=== PATIENT | male | born 1940 | race Caucasian/White ===

== ENCOUNTER 2019-01-21 16:12 | Inpatient (IN) | payer MEDICARE, BC ==
[~2019-01-21] VITALS: Ht 165.1 cm; Wt 73.5 kg
[2019-01-21 18:03] LABS: BASOPHILS 0.3 % (0-2); EOSINOPHILS 0.1 % (0-7); HEMATOCRIT 24.6 % (42.0-54.0); IMMATURE GRANULOCYTES 0.5 % (0-5); MCHC 28.5 g/dL (31.0-37.0); MCV 68.3 fL (80.0-100.0); MEAN PLATELET VOLUME 9.8 fL (7.4-10.4); MONOCYTES 8.8 % (2-11); NEUTROPHILS 80.3 % (40-80); PLATELET COUNT 434 10x3/uL (130-400); RDW 23.1 % (11.5-14.5); WBC 11.9 10x3/uL (4.8-10.8)
[2019-01-21 18:16] LABS: ALBUMIN 3.8 g/dL (3.4-5.0); ALKALINE PHOSPHATASE 57 U/L (46-116); ALT (SGPT) 26 U/L (10-68); BILIRUBIN - TOTAL 0.76 mg/dL (0.2-1.3); CALC OSMOLALITY 284 mosm/kg (275-300); CALCIUM 8.6 mg/dL (8.5-10.1); CARBON DIOXIDE 19.2 mmol/L (21.0-32.0); CHLORIDE - SERUM 104 mmol/L (98-107); CREATININE - SERUM 1.2 mg/dL (0.6-1.3); GLUCOSE 155 mg/dL (74-106); POTASSIUM - SERUM 3.2 mmol/L (3.5-5.1); PROTEIN - SERUM 7.7 g/dL (6.4-8.2); SODIUM 141 mmol/L (136-145); UREA NITROGEN 15 mg/dL (7-18); eGFR NON AFRICAN AMERICAN 62 mL/min (90-120)
[2019-01-21 18:18] LABS: MCH 19.4 pg (26.0-34.0)
[2019-01-21 18:26] LABS: CKMB 3.3 U/L (0.0-3.6); CREATINE KINASE 276 UL (21-232)
--- NOTE | 2019-01-21 18:40 | NUR ---
REPORT CALLED TO ERICKA DAVID AT [facility] ER, EMS ALS O NOTIFED.
--- NOTE | 2019-01-21 19:26 | NUR ---
LACTIC ACID ELEVATED 3.4 KUNAL COELLO.
[2019-01-21 19:37] VITALS: BP 134/54
--- NOTE | 2019-01-21 19:37 | NUR ---
EMS HERE TO TAKE PT TO [facility] FOR SOLIMAN PLACEMENT PER UROLOGY.
--- NOTE | 2019-01-21 19:49 | NUR ---
PT'S IV ROCEPHIN INFUSING ON TRANSPORT WITH EMS.
--- NOTE | 2019-01-21 22:19 | NUR ---
DYLLAN CAMPBELL RN CALLED REPORT AT THIS TIME. PT HAD 16 FR COUDE PLACED WAS GIVEN 4 MG MORPHINE AND 4MG ZOFRAN IV. THEY ARE AWAITING EMS TRANSPORT.
[2019-01-22] VITALS (12 sets, daily range): BP systolic 97–121; BP diastolic 49–60; Ht 165.1 cm; Wt 73.5 kg
--- NOTE | 2019-01-22 00:37 | NUR ---
RENUKA AT BEDSIDE WITH PT. PT ALERT ORIENTED AND STATES THAT HE FEELS MORE RELIEF AFTER GETTING SOLIMAN PLACED. PT HAS 16FR COUDE SOLIMAN PLACED 1500ML NOTED IN BAG OF BRIGHT RED BLOODY URINE . MD SYED AT BEDSIDE. PT OK TO GO TO FLOOR MED 3 CALLED AND INFORMED.
[2019-01-22] MEDS ORDERED: FLOMAX0.4 MG PO (01:44)
[2019-01-22] MEDS ORDERED: PROSCAR5 MG PO (01:45)
[2019-01-22] MEDS ORDERED: VITAMIN B-12250 MC3 PO (01:46)
[2019-01-22] MEDS ORDERED: NEXIUM20 MG PO (01:46)
[2019-01-22] MEDS ORDERED: BAYER CHEWABLE81 MG PO (01:47)
--- NOTE | 2019-01-22 03:36 | NUR ---
RECEIVED PT FROM [facility] VIA AMBULANCE JUST AFTER MIDNIGHT. HE IS ALERT AND ORIENTED, ABLE TO VERBALIZE NEEDS. FAMILY MEMBERS WERE AT THE HOSPITAL TO SETTLE HIM IN. HE CAME WITH A SOLIMAN CATH WHICH WAS PLACED AT [facility]. IT HAS BLOODY URINE BUT IS DRAINING WELL AND PT STATES HE IS NOT HAVING ANY PAIN. LABS WERE DRAWN AFTER HIS ARRIVAL AND HIS LACTIC ACIC WAS ELEVATED BUT HAS GONE DOWN SINCE THE PRIOR DRAW. ORDERS FROM THE ER AT [facility] BEFORE HE WAS SENT TO [facility] FOR A SOLIMAN ARE NOW BEING CARRIED OUT TO GIVE HIM A UNIT OF PRBC.S. THIS UNIT IS INFUSING AT THIS TIME AND HE IS ASLEEP WITH NO PROBLEMS NOTED. FAMILY LEFT AND WILL RETURN IN THE AM.
[2019-01-22 06:55] LABS: BASOPHILS 0.1 % (0-2); EOSINOPHILS 0.1 % (0-7); HEMATOCRIT 23.4 % (42.0-54.0); IMMATURE GRANULOCYTES 0.2 % (0-5); LYMPHOCYTES 8.6 % (15-50); MCH 21.3 pg (26.0-34.0); MCHC 29.9 g/dL (31.0-37.0); MONOCYTES 10.2 % (2-11); NEUTROPHILS 80.8 % (40-80); RBC 3.28 10x6/uL (4.20-6.10); WBC 11.1 10x3/uL (4.8-10.8)
[2019-01-22 06:58] LABS: MCV 71.3 fL (80.0-100.0); PLATELET COUNT 292 10x3/uL (130-400)
[2019-01-22 07:09] LABS: ANION GAP 13.3 mmol/L (8-16); BILIRUBIN - TOTAL 0.29 mg/dL (0.2-1.3); CALCIUM 8.1 mg/dL (8.5-10.1); CARBON DIOXIDE 23.6 mmol/L (21.0-32.0); CREATININE - SERUM 1.1 mg/dL (0.6-1.3); PROTEIN - SERUM 6.3 g/dL (6.4-8.2)
[2019-01-22 07:11] LABS: POTASSIUM - SERUM 3.9 mmol/L (3.5-5.1)
--- NOTE | 2019-01-22 07:45 | NUR ---
ASSESSMENT COMPLETE. IV TO R WRIST PATENT. ELECTRIC DISTRIBUTION ENGINEER SHOWING SR WITH ELEVATED T WAVE 73 PER TECH. QUISPE. JOURDAN PATENT DRAINING BLOODY URINE. DENIES ANY NEEDS AT THIS TIME.
--- NOTE | 2019-01-22 08:00 | NUR ---
AAOX4 READING NEWSPAPER NO SIGNS OF DISTRESS NOTED WILL CONTINUE TO MONITOR, CL IN REACH
--- NOTE | 2019-01-22 08:30 | NUR ---
C/O URINARY BURNING. URINE LEAKING AROUND CATHETER. CATHETER IRRIGATED. IMMEDIATE RETURN OF BLOOD TINGED URINE. STATES THAT THE BURNING STOPPED. STATLOCK IN USE TO CATHETER.
[2019-01-22 09:38] LABS: % SATURATION 3 % (15-55); IRON 13 ug/dl (35-150); TOTAL IRON BIND CAPACITY 372 ug/dl (260-445); UNSAT IRON BIND CAPACITY 359 ug/dl (150-375)
--- NOTE | 2019-01-22 10:30 | NUR ---
PRBC INFUSION STARTED. VSS. FAMILY AT BEDSIDE. DENIES ANY NEEDS AT THIS TIME.
--- NOTE | 2019-01-22 10:50 | NUR ---
BLOOD INFUSING AT THIS TIME
--- NOTE | 2019-01-22 16:25 | MORECARE ---
CASE MANAGEMENT DISCHARGE SUMMARY PATIENT: MARILYN LAWRENCE UNIT: [id number] ADM DATE: 01/21/19 AGE: 78 : 40 SEX: M ROOM/BED: D.1207 AUTHOR: JOSAFAT,DOC PHYSICIAN: REFERRING PHYSICIAN: LEVI OCAMPO MD DATE OF SERVICE: 01/22/19 Discharge Plan Patient Name: MARILYN LAWRENCE Facility: [facility]:[place] : 1940 Planned Disposition: Home Anticipated Discharge Date: Discharge Date: Expected LOS: Initial Reviewer: [id number] Initial Review Date: 01/22/2019 Generated: 01/22/19 5:24 pm Comments DCP- Discharge Planning Updated by [email or web address]: Natividad Chambers on 01/22/19 3:[address] Patient Name: MARILYN LAWRENCE Admission Status: ER Accout number: [id number] Admission Date: 01-21-2019 : 1940 Admission Diagnosis: Attending: ELVI GALLO Current LOS: 1 Anticipated DC Date: Planned Disposition: Home Primary Insurance: MEDICARE A & B Discharge Planning Comments: CM met with patient about discharge planning. CM explained CM role and verbal consent was given to do dc assessment. CM educated on Home Health, DME and rehab services that are available. Patient states his discharge plan is to return to home with Sign Other at [facility] . States home environment is safe for dc. Denies any discharge planning needs at this time. [facility] alexandro Bagley [phone] will drive home upon discharge. CM will continue to follow and assist as needed with discharge planning needs. Information Management Manager: Natividad Chambers DCPIA - Discharge Planning Initial Assessment Updated by [email or web address]: Natividad Chambers on 01/22/19 4:21 pm * Is the patient Alert and Oriented? Yes * How many steps to enter\exit or inside your home? na * PCP was suraj Rubin * Pharmacy [facility] [address] * Preadmission Environment Home with Family * ADLs Independent * Equipment Walker Wheelchair * Verbal permission to speak to the caregivers and representatives has been obtained from the patient. Yes * Community resources currently utilized None * Additional services required to return to the preadmission environment? No * Can the patient safely return to the preadmission environment? Yes * Has this patient been hospitalized within the prior 30 days at any hospital? Yes Patient Name: MARILYN LAWRENCE Page 12196 at 1625 All edits/amendments must be made on the electronic document DICTATION DATE: 01/22/191623 VASCULAR PHYSICIAN: JEWEL 01/22/191623 RPT#: [id number] DC DATE: STATUS: ADM IN [facility] [address] [place] [address] END OF REPORT
--- NOTE | 2019-01-22 18:55 | NUR ---
SCD'S APPLIED TO BILAT LEGS. DENIES ANY NEEDS AT THIS TIME.
--- NOTE | 2019-01-22 19:40 | NUR ---
PATIENT RESTING IN BED WITH NO S/S OF DISTRESS. BROUGHT PATIENT A DRINK PER HIS REQUEST AND REMOVED DINNER TRAY. PATIENT DENIES OTHER NEEDS AT THIS TIME. BED IN LOWEST POSITION AND CALL LIGHT WITHIN REACH. ENCOURAGED THE PATIENT TO CALL IF HE HAS NEEDS. WILL CONTINUE TO MONITOR.
[2019-01-22 20:01] LABS: HEMATOCRIT 29.7 % (42.0-54.0); HEMOGLOBIN 9.2 g/dL (13.5-17.5)
--- NOTE | 2019-01-22 20:24 | NUR ---
HCT 29.7, NO TRANSFUSION AT THIS TIME PER NURSING MESSAGE PARAMETERS.
[2019-01-23 00:22] VITALS: BP 107/58
[2019-01-23 04:00] VITALS: BP 120/61
[2019-01-23 05:14] LABS: BASOPHILS 0.3 % (0-2); HEMATOCRIT 27.7 % (42.0-54.0); HEMOGLOBIN 8.6 g/dL (13.5-17.5); IMMATURE GRANULOCYTES 0.3 % (0-5); LYMPHOCYTES 15.6 % (15-50); MCH 23.2 pg (26.0-34.0); MEAN PLATELET VOLUME 10.3 fL (7.4-10.4); MONOCYTES 10.8 % (2-11); RBC 3.71 10x6/uL (4.20-6.10); RDW 24.4 % (11.5-14.5); WBC 9.9 10x3/uL (4.8-10.8)
[2019-01-23 05:15] LABS: INR 1.31 (0.85-1.17); MCV 74.7 fL (80.0-100.0); PLATELET COUNT 217 10x3/uL (130-400); PROTIME 15.8 SECONDS (11.6-15.0)
[2019-01-23 05:28] LABS: ALBUMIN 2.6 g/dL (3.4-5.0); ALKALINE PHOSPHATASE 41 U/L (46-116); ALT (SGPT) 17 U/L (10-68); BILIRUBIN - TOTAL 0.37 mg/dL (0.2-1.3); CALC OSMOLALITY 281 mosm/kg (275-300); CALCIUM 7.6 mg/dL (8.5-10.1); CARBON DIOXIDE 23.5 mmol/L (21.0-32.0); CHLORIDE - SERUM 109 mmol/L (98-107); CREATININE - SERUM 0.9 mg/dL (0.6-1.3); GLUCOSE 97 mg/dL (74-106); MAGNESIUM - SERUM 2.2 mg/dL (1.8-2.4); POTASSIUM - SERUM 3.7 mmol/L (3.5-5.1); PROTEIN - SERUM 5.6 g/dL (6.4-8.2); SODIUM 141 mmol/L (136-145); UREA NITROGEN 15 mg/dL (7-18); eGFR NON AFRICAN AMERICAN 87 mL/min (90-120)
--- NOTE | 2019-01-23 07:10 | NUR ---
PT AAOX4 RESP EVEN AND NONLABORED, NO SIGNS OF DISTRESS NOTED, NO NEEDS EXPRESSED AT THIS TIME, WILL CONTINUE TO MONITOR CL IN REACH
[2019-01-23 08:30] VITALS: BP 129/60
--- NOTE | 2019-01-23 10:11 | NUR ---
PATIENT RESTING QUIETLY IN HIS ROOM. NO COMPLAINTS AT THIS TIME. WILL CONTINUE TO MONITOR. CALL LIGHT WITHIN REACH.
--- NOTE | 2019-01-23 11:19 | NUR ---
PT OUT OF ROOM FOR PROCEDURE
[2019-01-23 11:30] VITALS: BP 110/53
[2019-01-23 12:57] LABS: HEMATOCRIT 30.1 % (42.0-54.0); HEMOGLOBIN 9.2 g/dL (13.5-17.5)
[2019-01-23 16:26] VITALS: BP 121/61
--- NOTE | 2019-01-23 17:19 | NUR ---
1 UNIT OF BLOOD ORDERED AND COMPLETE AT THIS TIME, PT TOLRATED W/O COMPLAINT
[2019-01-23 19:58] LABS: HEMOGLOBIN 9.7 g/dL (13.5-17.5)
--- NOTE | 2019-01-23 20:57 | NUR ---
NIGHT TIME MEDICATIONS GIVEN, PT UP TO SIDE OF BED, A/O X4, RESP EVEN AND NONLABORED ON RA. RT FA IV SL. SOLIMAN CATHETER DRAINING YONATAN COLOR URINE WITH A TINGE OF RED. PT DENIES ANY NEEDS AT THIS TIME. CALL LIGHT IN REACH, NAD NOTED, WILL CONTINUE PLAN OF CARE.
[2019-01-23 21:31] VITALS: BP 139/73
--- NOTE | 2019-01-23 23:46 | NUR ---
RT FA IV SL AT THIS TIME. PT DENIES ANY NEEDS AT THIS TIME. CALL LIGHT IN REACH, NAD NOTED, WILL CONTINUE TO MONITOR.
[2019-01-24 00:19] VITALS: BP 132/54
[2019-01-24 04:30] VITALS: BP 117/72
[2019-01-24 06:51] LABS: BASOPHILS 0.2 % (0-2); EOSINOPHILS 2.7 % (0-7); HEMATOCRIT 30.7 % (42.0-54.0); HEMOGLOBIN 9.6 g/dL (13.5-17.5); IMMATURE GRANULOCYTES 0.2 % (0-5); LYMPHOCYTES 13.7 % (15-50); MCH 23.6 pg (26.0-34.0); MCHC 31.3 g/dL (31.0-37.0); MCV 75.6 fL (80.0-100.0); MEAN PLATELET VOLUME 9.7 fL (7.4-10.4); MONOCYTES 11.5 % (2-11); NEUTROPHILS 71.7 % (40-80); PLATELET COUNT 242 10x3/uL (130-400); RBC 4.06 10x6/uL (4.20-6.10); RDW 24.3 % (11.5-14.5); WBC 8.8 10x3/uL (4.8-10.8)
[2019-01-24 07:06] LABS: ALBUMIN 2.5 g/dL (3.4-5.0); ALKALINE PHOSPHATASE 44 U/L (46-116); ALT (SGPT) 22 U/L (10-68); BILIRUBIN - TOTAL 0.46 mg/dL (0.2-1.3); CALC OSMOLALITY 280 mosm/kg (275-300); CALCIUM 7.6 mg/dL (8.5-10.1); CARBON DIOXIDE 24.2 mmol/L (21.0-32.0); CHLORIDE - SERUM 108 mmol/L (98-107); CREATININE - SERUM 0.8 mg/dL (0.6-1.3); GLUCOSE 95 mg/dL (74-106); MAGNESIUM - SERUM 2.2 mg/dL (1.8-2.4); POTASSIUM - SERUM 3.7 mmol/L (3.5-5.1); PROTEIN - SERUM 5.5 g/dL (6.4-8.2); SODIUM 141 mmol/L (136-145); UREA NITROGEN 12 mg/dL (7-18); eGFR NON AFRICAN AMERICAN > 90 mL/min (90-120)
[2019-01-24 07:30] VITALS: BP 150/74
[2019-01-24 12:19] LABS: APPEARANCE CLEAR (CLEAR); BACTERIA FEW /hpf (NONE SEEN); BILIRUBIN NEGATIVE (NEGATIVE); COLOR Y] (YELLOW); EPITHELIAL CELLS OCC /hpf (0-5); GLUCOSE NEGATIVE (NEGATIVE); KETONE NEGATIVE (NEGATIVE); NITRITE NEGATIVE (NEGATIVE); PROTEIN NEGATIVE (NEGATIVE); SPECIFIC GRAVITY 1.005 (1.005-1.020); UROBILINOGEN NORMAL (NORMAL); WHITE CELLS - URINE OCC /hpf (0-5)
[2019-01-24 12:56] LABS: HEMATOCRIT 35.5 % (42.0-54.0)
[2019-01-24 16:56] VITALS: BP 144/70
--- NOTE | 2019-01-24 17:46 | NUR ---
RESTING IN BED. ALERT AND ORIENTED X4. SPOUSE AT BEDSIDE. CONTINUES TO DRINK GOLYTLY ORDERED FOR COLONOSCOPY PREOP. DENIES ANY NEEDS. UA COLLECTED AND TAKEN TO LAB. CONTINUE PLAN OF CARE AND SAFETY PRECAUTIONS.
[2019-01-24 20:21] LABS: HEMOGLOBIN 10.7 g/dL (13.5-17.5)
[2019-01-24 20:50] VITALS: BP 127/59
--- NOTE | 2019-01-24 22:05 | NUR ---
IV STARTED BY JUANITA OCHOA RN.
--- NOTE | 2019-01-25 00:02 | NUR ---
REST IN BED, CALL LIGHT IN REACH.
[2019-01-25 01:37] VITALS: BP 112/48
--- NOTE | 2019-01-25 03:45 | NUR ---
REST QUIETLY IN BED, CALL LIGHT IN REACH.
[2019-01-25 05:54] VITALS: BP 121/59
[2019-01-25 06:37] LABS: ALBUMIN 2.5 g/dL (3.4-5.0); ALKALINE PHOSPHATASE 47 U/L (46-116); ALT (SGPT) 18 U/L (10-68); CALC OSMOLALITY 279 mosm/kg (275-300); CALCIUM 7.8 mg/dL (8.5-10.1); CARBON DIOXIDE 22.7 mmol/L (21.0-32.0); CHLORIDE - SERUM 107 mmol/L (98-107); CREATININE - SERUM 0.9 mg/dL (0.6-1.3); GLUCOSE 95 mg/dL (74-106); MAGNESIUM - SERUM 2.2 mg/dL (1.8-2.4); POTASSIUM - SERUM 3.4 mmol/L (3.5-5.1); PROTEIN - SERUM 5.6 g/dL (6.4-8.2); SODIUM 141 mmol/L (136-145); UREA NITROGEN 9 mg/dL (7-18); eGFR NON AFRICAN AMERICAN 87 mL/min (90-120)
[2019-01-25 07:05] VITALS: BP 127/53
[2019-01-25 07:11] LABS: BASOPHILS 0.2 % (0-2); EOSINOPHILS 2.8 % (0-7); HEMATOCRIT 29.8 % (42.0-54.0); HEMOGLOBIN 9.2 g/dL (13.5-17.5); IMMATURE GRANULOCYTES 0.3 % (0-5); MCH 23.5 pg (26.0-34.0); MCHC 30.9 g/dL (31.0-37.0); MCV 76.2 fL (80.0-100.0); MEAN PLATELET VOLUME 9.8 fL (7.4-10.4); MONOCYTES 12.2 % (2-11); NEUTROPHILS 73.5 % (40-80); PLATELET COUNT 220 10x3/uL (130-400); RBC 3.91 10x6/uL (4.20-6.10); RDW 25.6 % (11.5-14.5); WBC 9.3 10x3/uL (4.8-10.8)
--- NOTE | 2019-01-25 08:00 | NUR ---
PT RESTING IN BED WITH FAMILY AT BEDSIDE. SHIFT ASSESSMENT PERFORMED. PT HAS BEEN NPO FOR COLONOSCOPY THIS AM. DENIES ANY OTHER NEEDS AT THIS TIME, WILL CONT TO FOLLOW POC
--- NOTE | 2019-01-25 09:00 | NUR ---
PT RETURNED FROM GI LAB. VSS AND WNL. DENIES ANY NEEDS AT THIS TIME. WILL CONT TO FOLLOW POC
[2019-01-25 10:19] LABS: FOLATE (FOLIC ACID) - SERUM >20.0 ng/mL (>3.0)
--- NOTE | 2019-01-25 12:34 | NUR ---
Nutrition Follow Up Reviewed chart Pt is on a regular diet Pt reports good appetite and tolerating meals Offered nutrition teaching and pt denied for now RD following
[2019-01-25 12:45] VITALS: BP 128/56
[2019-01-25 13:01] LABS: HEMATOCRIT 32.1 % (42.0-54.0); HEMOGLOBIN 9.9 g/dL (13.5-17.5)
--- NOTE | 2019-01-25 15:22 | NUR ---
ASSISTED PT TO SHOWER, COMPLETE BED LINEN CHANGE PROVIDED. ASSISTED PT BACK TO BED. DENIES ANY NEEDS AT THIS TIME, WILL CONT TO FOLLOW POC
--- NOTE | 2019-01-25 15:28 | NUR ---
PT STATES HE HAD THE SOLIMAN CATHETER INSERTED DUE TO STARTING LASIX. SOLIMAN CATHETER REMOVED WITH TIP INTACT VIA NURSE DRIVEN PROTOCOL
[2019-01-25 17:42] VITALS: BP 135/53
[2019-01-25 19:00] VITALS: BP 159/88
[2019-01-25 19:56] LABS: HEMATOCRIT 32.4 % (42.0-54.0); HEMOGLOBIN 9.9 g/dL (13.5-17.5)
[2019-01-26] VITALS: BP 160/89
[2019-01-26 04:00] VITALS: BP 159/88
[2019-01-26 05:13] LABS: BASOPHILS 0.1 % (0-2); EOSINOPHILS 0.6 % (0-7); HEMATOCRIT 34.3 % (42.0-54.0); HEMOGLOBIN 10.6 g/dL (13.5-17.5); IMMATURE GRANULOCYTES 0.1 % (0-5); MCH 23.8 pg (26.0-34.0); MCHC 30.9 g/dL (31.0-37.0); MCV 77.1 fL (80.0-100.0); MEAN PLATELET VOLUME 9.7 fL (7.4-10.4); MONOCYTES 0.7 % (2-11); NEUTROPHILS 95.5 % (40-80); PLATELET COUNT 218 10x3/uL (130-400); RBC 4.45 10x6/uL (4.20-6.10); RDW 25.9 % (11.5-14.5)
[2019-01-26 05:50] LABS: ALBUMIN 2.9 g/dL (3.4-5.0); ANION GAP 17.6 mmol/L (8-16); BILIRUBIN - TOTAL 0.91 mg/dL (0.2-1.3); CARBON DIOXIDE 19.9 mmol/L (21.0-32.0); POTASSIUM - SERUM 3.5 mmol/L (3.5-5.1); PROTEIN - SERUM 6.6 g/dL (6.4-8.2)
[2019-01-26 05:54] LABS: CREATININE - SERUM 1.2 mg/dL (0.6-1.3)
[2019-01-26 08:00] VITALS: BP 122/64
--- NOTE | 2019-01-26 08:00 | NUR ---
ASSESSMENT COMPLETE. SL TO R WRIST PATENT. MARKING DEVICES ASSEMBLER SHOWING SR 83 PER TECH. BURNS PAIUTE. UNABLE TO VOID. SPOKE WITH DR LUDWIG REGARDING CONSULT AND PATIENT'S INABILITY TO VOID SINCE CATHETER REMOVAL. PATIENT NPO. WILL GO TO OR TODAY FOR CYSTOSCOPY AND SOLIMAN PLACEMENT.
--- NOTE | 2019-01-26 09:34 | NUR ---
AWAITING PROCEDURE. C/O PAIN AND MOANING. DILAUDID GIVEN SLOW IVP. FAMILY MEMBERS AT BEDSIDE.
--- NOTE | 2019-01-26 10:55 | NUR ---
OFF FLOOR TO OR VIA BED.
--- NOTE | 2019-01-26 11:49 | NUR ---
1133 - SHORT STAY/TIVA PER ANESTHESIA
--- NOTE | 2019-01-26 12:05 | NUR ---
RECEVIED BACK TO ROOM FROM RECOVERY ROOM VIA BED. SLIGHTLY DROWSY. O2 5L HIGH FLOW O2 IN USE. O2 SAT 97%. O2 DECREASED TO 4L-O2 SAT REMAINED 97%. SOLIMAN PATENT DRAINING BLOODY URINE. NO CLOTS NOTED. FAMILY AT BEDSIDE.
[2019-01-26 12:09] VITALS: BP 123/63
[2019-01-26 12:23] VITALS: BP 123/63
[2019-01-26 13:06] LABS: HEMATOCRIT 33.5 % (42.0-54.0); HEMOGLOBIN 10.2 g/dL (13.5-17.5)
--- NOTE | 2019-01-26 14:54 | OP ---
PATIENT NAME: MARILYN LAWRENCE MEDICAL RECORD: [id number] :40 LOCATION:D.M3 D.1207 ADMISSION DATE:01/21/19 SURGEON: ABDIEL LUDWIG MD DATE OF OPERATION: 01/26/2019 SURGEON: Abdiel Ludwig MD ANESTHESIA: TIVA by Familia Madrigal MD DIAGNOSES: Urinary retention, inability to be catheterized due to urethral perforation at the bulbar level, and obstructive BPH. PROCEDURES: Cystoscopy and insertion of Jensen catheter over a guidewire. FINDINGS: Rupture of bulbar urethra, iatrogenic from attempts to insert a Jensen catheter. Urethral mucosal flaps on the anterior wall of the prostatic urethra. Obstructive BPH with bilateral lateral lobe hyperplasia with the left side being greater than the right side. No median lobe. BLOOD LOSS: None. CLINICAL HISTORY: This is a 78-year-old male who was found to have acute anemia from possible GI bleed. When he was admitted to the hospital, I was away at a conference in [place]. A Jensen catheter could not be inserted after multiple attempts. He had to be transferred to [facility] where urology there inserted a Jensen catheter. He was then transferred back here. The patient's Jensen catheter was then removed for some unknown reason. He is unable to void and he is in urinary retention. Catheter attempts are unsuccessful. They have asked me to put another catheter into the patient. I attempted to obtain some history from the patient, but he cannot give any cohesive history at all. We are going to go ahead and scope him and find out what the problems are and place the catheter over a guidewire. DESCRIPTION OF PROCEDURE: The patient was given IV sedation. He was given perioperative antibiotics. He was placed into lithotomy position. A 21-Romanian cystoscope with a 30-degree lens was used for visualization. He has perforation of the bulbar urethra from previous Jensen catheter insertion attempts. There was also a mucosal flap on the anterior wall of the prostatic urethra. Thus, the true lumen was actually a very tiny amount of surface area present. I placed a Sensor wire through the true lumen into the bladder. I was unable to follow the wire using the scope into the bladder. The bilateral lateral lobes were obstructive with the left side being greater than the right side. There was also a somewhat elevated bladder neck, but no significant median lobe. I did not scope the entire bladder, but there were no visible bladder tumors in the posterior wall of the bladder which I observed. The Sensor wire was definitely in the bladder. We then removed the scope, leaving the wire in place. A 16-Romanian chipewwa tip Jensen catheter was inserted into the bladder. Once the catheter was fully in the bladder, we then inflated the Jensen balloon with 10 cc of sterile water. The Sensor wire was then removed entirely. He will need to keep this catheter in until he gets his obstructive BPH relieved with a UroLift procedure in the future. TRANSINT:[id number] Voice Confirmation ID: [id number] DOCUMENT ID: [id number] OPERATIVE REPORT [id number] MARILYN LAWRENCE, ABDIEL Wong MD at 1454 CC: [id number] DICTATION DATE: 01/26/19 1140 SUPERVISOR RIVETING: 01/26/19 1203 ADM IN [facility] [address] [place] [id number]
--- NOTE | 2019-01-26 16:03 | MORECARE ---
CASE MANAGEMENT DISCHARGE SUMMARY PATIENT: MARILYN LAWRENCE UNIT: [id number] ADM DATE: 01/21/19 AGE: 78 : 40 SEX: M ROOM/BED: D.1207 AUTHOR: CAROLINA MAURICE PHYSICIAN: REFERRING PHYSICIAN: ELVI OCAMPO MD DATE OF SERVICE: 01/26/19 Discharge Plan Patient Name: MARILYN LAWRENCE Facility: [facility]:[place] : 1940 Planned Disposition: Home Anticipated Discharge Date: Discharge Date: Expected LOS: Initial Reviewer: [email or web address] Initial Review Date: 01/22/2019 Generated: 01/26/19 5:03 pm Comments DCP- Discharge Planning Updated by [id number]: Michelle Lyon on 01/26/19 2:[address] Patient Name: MARILYN LAWRENCE Admission Status: ER Accout number: [id number] Admission Date: 01-21-2019 : 1940 Admission Diagnosis:GASTROINTESTINAL HEMORRHAGE, UNSPECIFIED Attending: ELVI GALLO Current LOS: 5 Anticipated DC Date: Planned Disposition: Home Primary Insurance: MEDICARE A & B Discharge Planning Comments: CM MET WITH PATIENT TODAY AND EXPLAINED THE IMM. PATIENT WANTS TO WAIT UNTIL CLOSER TO DC BEFORE HE SIGNS THE IMM. CM WILL PLACE ON TOP OF CHART. PATIENT STATES HAS AN XRAY SERIES TOMORROW AND HAD CATHETER PLACED BY DR. LUDWIG, PATIENT HOPING DC FOR THURSDAY OR THURSDAY. CM TO FOLLOW AND ASSIST WITH DC PLANNING/NEEDS. Teller Supervisor: Michelle Lyon DCP- Discharge Planning Updated by [id number]: Natividad Chambers on 01/22/19 3:[address] Patient Name: MARILYN LAWRENCE Admission Status: ER Accout number: [id number] Admission Date: 01-21-2019 : 1940 Admission Diagnosis: Attending: ELVI GALLO Current LOS: 1 Anticipated DC Date: Planned Disposition: Home Primary Insurance: MEDICARE A & B Discharge Planning Comments: CM met with patient about discharge planning. CM explained CM role and verbal consent was given to do dc assessment. CM educated on Home Health, DME and rehab services that are available. Patient states his discharge plan is to return to home with Sign Other at [facility] . States home environment is safe for dc. Denies any discharge planning needs at this time. States alexandro Bagley [phone] will drive home upon discharge. CM will continue to follow and assist as needed with discharge planning needs. Teller Supervisor: Natividad Chambers DCPIA - Discharge Planning Initial Assessment Updated by [id number]: Natividad Chambers on 01/22/19 4:21 pm * Is the patient Alert and Oriented? Yes * How many steps to enter\exit or inside your home? na * PCP was suraj Rubin * Pharmacy [facility] * Preadmission Environment Home with Family * ADLs Independent * Equipment Walker Wheelchair * Verbal permission to speak to the caregivers and representatives has been obtained from the patient. Yes * Community resources currently utilized None * Additional services required to return to the preadmission environment? No * Can the patient safely return to the preadmission environment? Yes * Has this patient been hospitalized within the prior 30 days at any hospital? Yes Last DP export: 01/22/19 3:24 pm Patient Name: MARILYN LAWRENCE Page 54551 at 1603 All edits/amendments must be made on the electronic document DICTATION DATE: 01/26/19 160 BOOK REPAIRER: JEWEL 01/26/19 160 RPT#: [id number] DC DATE: STATUS: ADM IN [facility] [address] [place] [address] END OF REPORT
--- NOTE | 2019-01-26 19:22 | NUR ---
PT SITTING UP IN BED ALERT AND ORIENTED. NO S/S OF DISTRESS. PT DENIES ANY PAIN OR NEEDS AT THIS TIME. BED LOW, CALL LIGHT WITHIN REACH. WILL CONTINUE TO MONITOR.
[2019-01-26 20:46] LABS: HEMATOCRIT 29.2 % (42.0-54.0)
--- NOTE | 2019-01-27 05:45 | NUR ---
PT NPO THIS AM FOR PROCEDURE. NO S/S OF DISTRESS. BED LOW CALL LIGHT WITHIN REACH. WILL CONTINUE TO MONITOR.
[2019-01-27 05:50] LABS: HEMATOCRIT 27.2 % (42.0-54.0); HEMOGLOBIN 8.5 g/dL (13.5-17.5); MCH 23.9 pg (26.0-34.0); MCHC 31.3 g/dL (31.0-37.0); MCV 76.4 fL (80.0-100.0); MEAN PLATELET VOLUME 10.2 fL (7.4-10.4); PLATELET COUNT 177 10x3/uL (130-400); RBC 3.56 10x6/uL (4.20-6.10); RDW 26.4 % (11.5-14.5)
[2019-01-27 05:58] LABS: ALBUMIN 2.1 g/dL (3.4-5.0); ALKALINE PHOSPHATASE 50 U/L (46-116); ALT (SGPT) 13 U/L (10-68); BILIRUBIN - TOTAL 0.27 mg/dL (0.2-1.3); CALC OSMOLALITY 280 mosm/kg (275-300); CALCIUM 7.3 mg/dL (8.5-10.1); CHLORIDE - SERUM 108 mmol/L (98-107); GLUCOSE 107 mg/dL (74-106); POTASSIUM - SERUM 3.2 mmol/L (3.5-5.1); PROTEIN - SERUM 5.2 g/dL (6.4-8.2); SODIUM 140 mmol/L (136-145); UREA NITROGEN 17 mg/dL (7-18); eGFR NON AFRICAN AMERICAN 77 mL/min (90-120)
[2019-01-27 06:06] LABS: LYMPHOCYTES 7 % (15-50); MONOCYTES 10 % (2-11); NEUTROPHILS 83 % (40-80); PLATELET ESTIMATE NORMAL
--- NOTE | 2019-01-27 07:25 | NUR ---
PT RESTING IN BED, EYES OPEN. ALERT AND ORIENTED. NO C/O PAIN. NO S/S OF ACUTE DISTRESS NOTED. NPO SINCE MIDNIGHT FOR BARIUM SWALLOW STUDY SCHEDULED FOR TODAY. HAS SCDS. STANDBY ASSIST. SOLIMAN PRESENT, URINE RED COLORED. IV TO RIGHT WRIST, SL. SITE PATENT WITHOUT REDNESS OR SWELLING. PT ON TELEMETRY 84 SR. POTASSIUM OF 3.2 THIS AM. PT DENIES ANYTHING FURTHER AT THIS TIME. CALL LIGHT IN REACH. WILL CONTINUE TO MONITOR.
[2019-01-27 08:09] VITALS: BP 123/63
--- NOTE | 2019-01-27 08:10 | NUR ---
PT TAKEN FOR BARIUM SWALLOW STUDY. TAKEN BY HOSPITAL STAFF VIA WHEELCHAIR.
--- NOTE | 2019-01-27 10:42 | NUR ---
RECEIVED PT BACK FROM BARIUM STUDY. ALERT AND ORIENTED. NO C/O PAIN. NO S/S OF ACUTE DISTRESS NOTED. PT DENIES ANYTHING FURTHER AT THIS TIME. CALL LIGHT IN REACH. WILL CONTINUE TO MONITOR.
--- NOTE | 2019-01-27 10:52 | NUR ---
Nutrition Follow Up: Pt was out of the room for barium swallow. Family member reported that pt's appetite is good and he has been tolerating his current diet. Family member stated that pt was aware that he could no longer have nuts, seeds, etc to eat. Diet: Regular PO Intake: 100% meal avg BM: 01/24/19 Wt stable Meds and labs reviewed Rec continue regular diet with CHECKING DEPARTMENT SUPERVISOR recs for consistencies. Will continue to honor food preferences. RD following.
[2019-01-27 13:46] LABS: HEMATOCRIT 31.3 % (42.0-54.0); HEMOGLOBIN 9.6 g/dL (13.5-17.5); MCH 23.8 pg (26.0-34.0); MCHC 30.7 g/dL (31.0-37.0); MCV 77.5 fL (80.0-100.0); MEAN PLATELET VOLUME 9.3 fL (7.4-10.4); PLATELET COUNT 192 10x3/uL (130-400); RBC 4.04 10x6/uL (4.20-6.10); RDW 26.3 % (11.5-14.5); WBC 18.8 10x3/uL (4.8-10.8)
--- NOTE | 2019-01-27 14:21 | CN ---
PATIENT NAME:MARILYN LAWRENCE MEDICAL RECORD: [id number] : 40 LOCATION:D. D.1207 ADMIT DATE: 01/21/19 ACCOUNT: [id number] CONSULTING PHYSICIAN: MARIO WHITNEY MD REFERRING PHYSICIAN: RICKEY ACOSTA MD DATE OF CONSULTATION: 01/23/2019 CONSULT REQUESTING PHYSICIAN: Rickey Acosta MD REASON FOR CONSULTATION: Pneumonia and COPD. HISTORY OF PRESENT ILLNESS: Mr. Lawrence is a 78-year-old gentleman who has a history of melanoma and ex-smoker. He was seen in the [facility], the chest radiograph showed bilateral infiltrates and the patient was sent to the [facility] and then transferred to [facility] for possible GI bleed. Now, the patient is feeling better. Denies any fever and chills, no night sweats. There is a cough, which is productive with white yellow color sputum production. Feels that he did not hear himself wheezing. He does get shortness of breath with exertion, which he relates to anemia. REVIEW OF SYSTEMS: As in history of present illness. PAST MEDICAL HISTORY: 1. History of melanoma. 2. History of latent TB and a lung biopsy in in 1980. 3. History of gastrointestinal bleed. 4. History of osteoarthritis. PAST SURGICAL HISTORY: 1. He has a herniorrhaphy. 2. History of T&A. 3. History of lung biopsy in 1980 in and that turned out to be benign, possible TB. 4. Carpal tunnel surgery. ALLERGIES: There are no known drug allergies. MEDICATIONS: [place] is reviewed. PERSONAL AND SOCIAL HISTORY: The patient is an ex-smoker. He is a nondrinker. FAMILY HISTORY: Noncontributory. PHYSICAL EXAMINATION: GENERAL: Now, the patient is lying comfortably in bed. He is not in acute distress. VITAL SIGNS: The blood pressure is 110/53, pulse is 72, respirations 17, temperature 97.9, and SpO2 is 95% on room air. HEENT: Conjunctivae are pale. Sclerae not icteric. NECK: Supple, no JVD. CHEST: The chest excursion is minimal on both sides. There are bilateral crackles. No wheezing. HEART: Rhythm regular, normal sound, no murmur. ABDOMEN: Soft, bowel sounds present. No hepatosplenomegaly. RECTAL: Deferred. CONSULT REPORT [id number] MARILYN LAWRENCE EXTREMITIES: No cyanosis, no clubbing, no pedal edema. CENTRAL NERVOUS SYSTEM: The patient is awake and alert. There are no obvious cranial nerve abnormalities. The gait was not tested. LABORATORY DATA: CBC: WBC 9.9, hemoglobin 8.6, hematocrit 27.7. On arrival, his hemoglobin was 5.4. Chemistry: Sodium 141, potassium 3.9, BUN 18, creatinine 1.1. IMAGING: Chest radiograph, there is an ill-defined opacity in the right mid lung, possible pneumonia, possible atelectasis. IMPRESSION: 1. Pneumonia, right middle lobe, possible community-acquired pneumonia. 2. Microcytic anemia secondary to gastrointestinal bleeding. 3. Chronic obstructive pulmonary disease with acute exacerbation. 4. Obstructive uropathy. 5. History of melanoma. 6. History of tuberculosis. The patient has a biopsy in 1980 in [place], [place] and the patient was given no treatment. RECOMMENDATIONS: 1. We will check the CT scan of the chest. 2. Agree with blood transfusion. 3. Continue Rocephin IV. I will start Levaquin for cover for Gram negative and atypical. 4. Follow-up labs and chest radiograph. 5. Brovana/budesonide nebulizer. 6. Albuterol/ipratropium nebulizer. 8. Follow up labs and chest radiograph. Dr. Acosta, thank you for involving me in the care of Mr. Lawrence. TRANSINT:[id number] Voice Confirmation ID: [id number] DOCUMENT ID: [id number] MARIO WHITNEY MD at 1421 CC: [id number] DICTATION DATE: 01/23/19 1509 LEISURE TRAVEL AGENT: 01/23/19 3543 ADM IN [place] [id number] [place] [address]
--- NOTE | 2019-01-27 15:41 | NUR ---
I have reviewed this patient and I concur with the Shift Assessment completed by the Licensed Practical Nurse today this shift.
--- NOTE | 2019-01-27 18:55 | NUR ---
IV INFILTRATED, TRIED 2X'S, UNSUCCESSFUL. ASKED ONCOMING NURSE TO TRY. PT SITTING UP IN BED, EYES OPEN. NO C/O PAIN. NO S/S OF ACUTE DISTRESS NOTED. CALL LIGHT IN REACH. PT DENIES ANYTHING FURTHER.
[2019-01-27 18:58] VITALS: BP 133/72
[2019-01-27 20:00] VITALS: BP 143/75
[2019-01-28] VITALS: BP 126/68
[2019-01-28 04:00] VITALS: BP 138/99
[2019-01-28 06:53] LABS: ANION GAP 15.5 mmol/L (8-16); CALCIUM 7.9 mg/dL (8.5-10.1); CARBON DIOXIDE 21.6 mmol/L (21.0-32.0); CREATININE - SERUM 1.1 mg/dL (0.6-1.3); POTASSIUM - SERUM 4.1 mmol/L (3.5-5.1)
[2019-01-28 07:02] LABS: BASOPHILS 0.3 % (0-2); EOSINOPHILS 2.6 % (0-7); HEMATOCRIT 31.4 % (42.0-54.0); HEMOGLOBIN 9.4 g/dL (13.5-17.5); IMMATURE GRANULOCYTES 0.3 % (0-5); LYMPHOCYTES 10.5 % (15-50); MCH 23.3 pg (26.0-34.0); MCHC 29.9 g/dL (31.0-37.0); MCV 77.7 fL (80.0-100.0); MEAN PLATELET VOLUME 9.7 fL (7.4-10.4); MONOCYTES 9.5 % (2-11); NEUTROPHILS 76.8 % (40-80); PLATELET COUNT 204 10x3/uL (130-400); RBC 4.04 10x6/uL (4.20-6.10); RDW 26.6 % (11.5-14.5)
[2019-01-28 07:21] LABS: WBC 13.3 10x3/uL (4.8-10.8)
[2019-01-28 08:09] VITALS: BP 135/71
--- NOTE | 2019-01-28 10:00 | NUR ---
I have reviewed this patient and I concur with the Shift Assessment completed by the Licensed Practical Nurse today this shift.
--- NOTE | 2019-01-28 10:18 | NUR ---
PT SITTING UP IN BED. ALERT AND ORIENTED. FLUSHED LEFT HAND IV WITH 10CC NS. ROOM AIR. SOLIMAN CATH EMPTIED. PT IS UP ADLIB. PT HAS NO FURTHER NEEDS AT THIS TIME. WILL CONTINUE TO MONITOR.
[2019-01-28] MEDS ORDERED: LEVAQUIN750 MG PO (11:18)
[2019-01-28] MEDS ORDERED: PROTONIX40 MG PO (11:19)
--- NOTE | 2019-01-28 11:56 | MORECARE ---
CASE MANAGEMENT DISCHARGE SUMMARY PATIENT: MARILYN LAWRENCE UNIT: [id number] ADM DATE: 01/21/19 AGE: 78 : 40 SEX: M ROOM/BED: D.1207 AUTHOR: JOSAFAT,DOC PHYSICIAN: REFERRING PHYSICIAN: ELVI OCAMPO MD DATE OF SERVICE: 01/28/19 Discharge Plan Patient Name: MARILYN LAWRENCE Facility: [facility]:[place] : 1940 Planned Disposition: Home Anticipated Discharge Date: Discharge Date: Expected LOS: Initial Reviewer: [id number] Initial Review Date: 01/22/2019 Generated: 01/28/19 12:56 pm Comments DCP- Discharge Planning Updated by [id number]: Michelle Lyon on 01/28/19 10:[address] Patient Name: MARILYN LAWRENCE Admission Status: ER Accout number: [id number] Admission Date: 01-21-2019 : 1940 Admission Diagnosis:GASTROINTESTINAL HEMORRHAGE, UNSPECIFIED Attending: ELVI GALLO Current LOS: 7 Anticipated DC Date: Planned Disposition: Home Primary Insurance: MEDICARE A & B Discharge Planning Comments: PATIENT CHOSE [facility] FOR HIS HH CHOICE, RALPH SIGNED. IMM SIGNED. CM SPOKE WITH [facility] AND THEY WILL SEE PATIENT. [facility] PHONE NUMBER IS [phone]. PATIENT TO DC WITH JOURDAN. CM TO FOLLOW AND ASSIST NEEDED. Grain Spouter: Michelle Lyon DCP- Discharge Planning Updated by [email or web address]: Michelle Lyon on 01/26/19 2:[address] Patient Name: MARILYN LAWRENCE Admission Status: ER Accout number: [id number] Admission Date: 01-21-2019 : 1940 Admission Diagnosis:GASTROINTESTINAL HEMORRHAGE, UNSPECIFIED Attending: ELVI GALLO Current LOS: 5 Anticipated DC Date: Planned Disposition: Home Primary Insurance: MEDICARE A & B Discharge Planning Comments: CM MET WITH PATIENT TODAY AND EXPLAINED THE IMM. PATIENT WANTS TO WAIT UNTIL CLOSER TO DC BEFORE HE SIGNS THE IMM. CM WILL PLACE ON TOP OF CHART. PATIENT STATES HAS AN XRAY SERIES TOMORROW AND HAD CATHETER PLACED BY DR. LUDWIG, PATIENT HOPING DC FOR THURSDAY OR THURSDAY. CM TO FOLLOW AND ASSIST WITH DC PLANNING/NEEDS. Grain Spouter: Michelle Lyon DCP- Discharge Planning Updated by [id number]: Natividad Chambers on 01/22/19 3:[address] Patient Name: MARILYN LAWRENCE Admission Status: ER Accout number: [id number] Admission Date: 01-21-2019 : 1940 Admission Diagnosis: Attending: ELVI GALLO Current LOS: 1 Anticipated DC Date: Planned Disposition: Home Primary Insurance: MEDICARE A & B Discharge Planning Comments: CM met with patient about discharge planning. CM explained CM role and verbal consent was given to do dc assessment. CM educated on Home Health, DME and rehab services that are available. Patient states his discharge plan is to return to home with Sign Other at [facility] . States home environment is safe for dc. Denies any discharge planning needs at this time. States alexandro Bagley [id number] will drive home upon discharge. CM will continue to follow and assist as needed with discharge planning needs. Grain Spouter: Natividad Chambers DCPIA - Discharge Planning Initial Assessment Updated by [id number]: Natividad Chambers on 01/22/19 4:21 pm * Is the patient Alert and Oriented? Yes * How many steps to enter\exit or inside your home? na * PCP was suraj Rubin one * Pharmacy [facility] on [facility] * Preadmission Environment Home with Family * ADLs Independent * Equipment Walker Wheelchair * Verbal permission to speak to the caregivers and representatives has been obtained from the patient. Yes * Community resources currently utilized None * Additional services required to return to the preadmission environment? No * Can the patient safely return to the preadmission environment? Yes * Has this patient been hospitalized within the prior 30 days at any hospital? Yes External Providers External Provider: LUDIV[facility] Next Contact Date: Service Request Date: Service Type: Resolution: Reviewer: Comments: Coverage Notice Reviewer: [id number] - Michelle Lyon Notice Issued Date-Time: 01/28/2019 11:42 Notice Type: Patient Choice Letter Notice Delivered To: Patient Relationship to Patient: Self Consulting Networking Engineer Name: Delivery Method: HAND - Hand Delivered Sabrina Days: Prior Verbal Notification: Recipient Understood Notice: Yes Recipient Signature: Yes Med Rec Note Co-signed by Attending: Coverage Notice Comment: [facility] Last DP export: 01/26/19 3:03 pm Patient Name: MARILYN LAWRENCE Page [phone] at 1156 All edits/amendments must be made on the electronic document DICTATION DATE: 01/28/191154 NETWORK TECHNICAL ANALYST: JEWEL 01/28/191154 RPT#: [id number] DC DATE: STATUS: ADM IN [facility] [address] [place] [address] END OF REPORT
--- NOTE | 2019-01-28 12:07 | MORECARE ---
CASE MANAGEMENT DISCHARGE SUMMARY PATIENT: MARILYN LAWRENCE UNIT: [id number] ADM DATE: 01/21/19 AGE: 78 : 40 SEX: M ROOM/BED: D.1207 AUTHOR: JOSAFATDOC PHYSICIAN: REFERRING PHYSICIAN: ELVI OCAMPO MD DATE OF SERVICE: 01/28/19 Discharge Plan Patient Name: MARILYN LAWRENCE Facility: [facility]:[place] : 1940 Planned Disposition: Home Anticipated Discharge Date: Discharge Date: Expected LOS: Initial Reviewer: [id number] Initial Review Date: 01/22/2019 Generated: 01/28/19 1:07 pm Comments DCP- Discharge Planning Updated by [email or web address]: Michelle Lyon on 01/28/19 11:[address] Patient Name: MARILYN LAWRENCE Admission Status: ER Accout number: [id number] Admission Date: 01-21-2019 : 1940 Admission Diagnosis:GASTROINTESTINAL HEMORRHAGE, UNSPECIFIED Attending: ELVI GALLO Current LOS: 7 Anticipated DC Date: Planned Disposition: Home Primary Insurance: MEDICARE A & B Discharge Planning Comments: PATIENT CHOSE [facility] FOR HIS HH CHOICE, RALPH SIGNED. IMM SIGNED. CM SPOKE WITH [facility] AND THEY WILL SEE PATIENT. [facility] PHONE NUMBER IS [phone]. PATIENT TO DC WITH JOURDAN. CM TO FOLLOW AND ASSIST NEEDED. Certified Medication Technician: Michelle Lyon Appended by Michelle Lyon on 01/28/2019 12:03 CDT: DOCUMENTS FAXED TO [facility] AND THEY STATED THEY WILL SEE PATIENT. DCP- Discharge Planning Updated by [email or web address]: Michelle Lyon on 01/26/19 2:[address] Patient Name: MARILYN LAWRENCE Admission Status: ER Accout number: [id number] Admission Date: 01-21-2019 : 1940 Admission Diagnosis:GASTROINTESTINAL HEMORRHAGE, UNSPECIFIED Attending: ELVI GALLO Current LOS: 5 Anticipated DC Date: Planned Disposition: Home Primary Insurance: MEDICARE A & B Discharge Planning Comments: CM MET WITH PATIENT TODAY AND EXPLAINED THE IMM. PATIENT WANTS TO WAIT UNTIL CLOSER TO DC BEFORE HE SIGNS THE IMM. CM WILL PLACE ON TOP OF CHART. PATIENT STATES HAS AN XRAY SERIES TOMORROW AND HAD CATHETER PLACED BY DR. LUDWIG, PATIENT HOPING DC FOR THURSDAY OR THURSDAY. CM TO FOLLOW AND ASSIST WITH DC PLANNING/NEEDS. Certified Medication Technician: Michelle Lyon DCP- Discharge Planning Updated by [email or web address]: Natividad Chambers on 01/22/19 3:[address] Patient Name: MARILYN LAWRENCE Admission Status: ER Accout number: [id number] Admission Date: 01-21-2019 : 1940 Admission Diagnosis: Attending: ELVI GALLO Current LOS: 1 Anticipated DC Date: Planned Disposition: Home Primary Insurance: MEDICARE A & B Discharge Planning Comments: CM met with patient about discharge planning. CM explained CM role and verbal consent was given to do dc assessment. CM educated on Home Health, DME and rehab services that are available. Patient states his discharge plan is to return to home with Sign Other at [facility] . States home environment is safe for dc. Denies any discharge planning needs at this time. States alexandro Bagley [phone] will drive home upon discharge. CM will continue to follow and assist as needed with discharge planning needs. Certified Medication Technician: Natividad Chambers DCPIA - Discharge Planning Initial Assessment Updated by [id number]: Natividad Chambers on 01/22/19 4:21 pm * Is the patient Alert and Oriented? Yes * How many steps to enter\exit or inside your home? na * PCP was suraj Rubin * Pharmacy [facility] * Preadmission Environment Home with Family * ADLs Independent * Equipment Walker Wheelchair * Verbal permission to speak to the caregivers and representatives has been obtained from the patient. Yes * Community resources currently utilized None * Additional services required to return to the preadmission environment? No * Can the patient safely return to the preadmission environment? Yes * Has this patient been hospitalized within the prior 30 days at any hospital? Yes Coverage Notice Reviewer: [id number] Nathaniel Lyon Notice Issued Date-Time: 01/28/2019 11:42 Notice Type: Patient Choice Letter Notice Delivered To: Patient Relationship to Patient: Self Director Of Ancillary Services Name: Delivery Method: HAND - Hand Delivered Sabrina Days: Prior Verbal Notification: Recipient Understood Notice: Yes Recipient Signature: Yes Med Rec Note Co-signed by Attending: Coverage Notice Comment: [facility] Reviewer: [id number] Nathaniel Lyon Notice Issued Date-Time: 01/28/2019 12:00 Notice Type: IM Discharge Notice Notice Delivered To: Patient Relationship to Patient: Director Of Ancillary Services Name: Delivery Method: HAND - Hand Delivered Sabrina Days: Prior Verbal Notification: Recipient Understood Notice: Yes Recipient Signature: Yes Med Rec Note Co-signed by Attending: Coverage Notice Comment: Last DP export: 01/28/19 10:56 a Patient Name: MARILYN LAWRENCE Page 63097 at 1207 All edits/amendments must be made on the electronic document DICTATION DATE: 01/28/191206 WEIGH BOX TENDER: JEWEL 01/28/19 1207 RPT#: [id number] DC DATE: STATUS: ADM IN [facility] [address] [place] [address] END OF REPORT
--- NOTE | 2019-01-28 15:01 | NUR ---
PT DISCHARGED HOME VIA WHEELCHAIR WITH FAMILY. PT SIGNED PROPER DISCHARGE INSTRUCTION AND REMOVED ALL VALUABLES FROM THE ROOM. PIV REMOVED WITH CATHETER TIP FULLY INTACT. TELEMETRY REMOVED AND RETURNED.
--- NOTE | 2019-01-28 15:17 | MORECARE ---
CASE MANAGEMENT DISCHARGE SUMMARY PATIENT: MARILYN LAWRENCE UNIT: [id number] ADM DATE: 01/21/19 AGE: 78 : 40 SEX: M ROOM/BED: D.1207 AUTHOR: CAROLINA MAURICE PHYSICIAN: REFERRING PHYSICIAN: ELVI OCAMPO MD DATE OF SERVICE: 01/28/19 Discharge Plan Patient Name: MARILYN LAWRENCE Facility: [facility]:[place] : 1940 Planned Disposition: Home Anticipated Discharge Date: 01/28/19 Discharge Date: 01/28/2019 Expected LOS: 7 Initial Reviewer: [id number] Initial Review Date: 01/22/2019 Generated: 01/28/19 4:17 pm Comments DCP- Discharge Planning Updated by [id number]: Michelle Lyon on 01/28/19 11:[address] Patient Name: MARILYN LAWRENCE Admission Status: ER Accout number: [id number] Admission Date: 01-21-2019 : 1940 Admission Diagnosis:GASTROINTESTINAL HEMORRHAGE, UNSPECIFIED Attending: ELVI GALLO Current LOS: 7 Anticipated DC Date: Planned Disposition: Home Primary Insurance: MEDICARE A & B Discharge Planning Comments: PATIENT CHOSE [facility] FOR HIS HH CHOICE, RALPH SIGNED. IMM SIGNED. SPOKE WITH [facility] AND THEY WILL SEE PATIENT. [facility] PHONE NUMBER IS [phone]. PATIENT TO DC WITH JOURDAN. CM TO FOLLOW AND ASSIST NEEDED. Picc Nurse: Michelle Lyon Appended by Michelle Lyon on 01/28/2019 12:03 CDT: DOCUMENTS FAXED TO [facility] AND THEY STATED THEY WILL SEE PATIENT. DCP- Discharge Planning Updated by [email or web address]: Michelle Lyon on 01/26/19 2:[address] Patient Name: MARILYN LAWRENCE Admission Status: ER Accout number: [id number] Admission Date: 01-21-2019 : 1940 Admission Diagnosis:GASTROINTESTINAL HEMORRHAGE, UNSPECIFIED Attending: ELVI GALLO Current LOS: 5 Anticipated DC Date: Planned Disposition: Home Primary Insurance: MEDICARE A & B Discharge Planning Comments: CM MET WITH PATIENT TODAY AND EXPLAINED THE IMM. PATIENT WANTS TO WAIT UNTIL CLOSER TO DC BEFORE HE SIGNS THE IMM. CM WILL PLACE ON TOP OF CHART. PATIENT STATES HAS AN XRAY SERIES TOMORROW AND HAD CATHETER PLACED BY DR. LUDWIG, PATIENT HOPING DC FOR THURSDAY OR THURSDAY. CM TO FOLLOW AND ASSIST WITH DC PLANNING/NEEDS. Picc Nurse: Michelle Lyon DCP- Discharge Planning Updated by [email or web address]: Natividad Chambers on 01/22/19 3:[address] Patient Name: MARILYN LAWRENCE Admission Status: ER Accout number: [id number] Admission Date: 01-21-2019 : 1940 Admission Diagnosis: Attending: ELVI GALLO Current LOS: 1 Anticipated DC Date: Planned Disposition: Home Primary Insurance: MEDICARE A & B Discharge Planning Comments: CM met with patient about discharge planning. CM explained CM role and verbal consent was given to do dc assessment. CM educated on Home Health, DME and rehab services that are available. Patient states his discharge plan is to return to home with Sign Other at [facility] . States home environment is safe for dc. Denies any discharge planning needs at this time. States alexandro Bagley [phone] will drive home upon discharge. CM will continue to follow and assist as needed with discharge planning needs. Picc Nurse: Natividad Chambers DCPIA - Discharge Planning Initial Assessment Updated by [id number]: Natividad Chambers on 01/22/19 4:21 pm * Is the patient Alert and Oriented? Yes * How many steps to enter\exit or inside your home? na * PCP was suraj Rubin one * Pharmacy [facility] * Preadmission Environment Home with Family * ADLs Independent * Equipment Walker Wheelchair * Verbal permission to speak to the caregivers and representatives has been obtained from the patient. Yes * Community resources currently utilized None * Additional services required to return to the preadmission environment? No * Can the patient safely return to the preadmission environment? Yes * Has this patient been hospitalized within the prior 30 days at any hospital? Yes Coverage Notice Reviewer: [id number] Nathaniel Lyon Notice Issued Date-Time: 01/28/2019 11:42 Notice Type: Patient Choice Letter Notice Delivered To: Patient Relationship to Patient: Self Nps Name: Delivery Method: HAND - Hand Delivered Sabrina Days: Prior Verbal Notification: Recipient Understood Notice: Yes Recipient Signature: Yes Med Rec Note Co-signed by Attending: Coverage Notice Comment: [facility] Reviewer: [id number] Nathaniel Lyon Notice Issued Date-Time: 01/28/2019 12:00 Notice Type: IM Discharge Notice Notice Delivered To: Patient Relationship to Patient: Nps Name: Delivery Method: HAND - Hand Delivered Sabrina Days: Prior Verbal Notification: Recipient Understood Notice: Yes Recipient Signature: Yes Med Rec Note Co-signed by Attending: Coverage Notice Comment: Last DP export: 01/28/19 11:07 a Patient Name: MARILYN LAWRENCE Page 81257 at 1517 All edits/amendments must be made on the electronic document DICTATION DATE: 01/28/196 HOUSEKEEPER NANNY: JEWEL 01/28/19 1516 RPT#: [id number] DC DATE:01/28/19 STATUS: DIS IN [facility] [address] [place] [address] END OF REPORT
== END 2019-01-28 15:02 | disposition home or self-care (01) | DRG 377 ==
LOC: D.ER 16:12 → D.EDHOLD 17:27 → D.M3 17:27
PROVIDERS: Emergency Medicine; Family Medicine; Internal Medicine Gastroenterology; Internal Medicine Nephrology; ADMIT Family Medicine Adult Medicine; ATTEND Family Medicine Adult Medicine
PROC: 0DB68ZX Excision of Stomach, Via Natural or Artificial Opening Endoscopic, Diagnostic (ICD-10-PCS; 2019-01-23)
PROC: 0DB58ZX Excision of Esophagus, Via Natural or Artificial Opening Endoscopic, Diagnostic (ICD-10-PCS; 2019-01-23)
PROC: 0DB98ZX Excision of Duodenum, Via Natural or Artificial Opening Endoscopic, Diagnostic (ICD-10-PCS; principal; 2019-01-23 11:00)
PROC: 0DBL8ZZ Excision of Transverse Colon, Via Natural or Artificial Opening Endoscopic (ICD-10-PCS; 2019-01-25)
PROC: 0D5P8ZZ Destruction of Rectum, Via Natural or Artificial Opening Endoscopic (ICD-10-PCS; 2019-01-25)
PROC: 0T9B80Z Drainage of Bladder with Drainage Device, Via Natural or Artificial Opening Endoscopic (ICD-10-PCS; 2019-01-26)
DX: K57.91 Diverticulosis of intestine, part unspecified, without perforation or abscess with bleeding (principal); J18.1 Lobar pneumonia, unspecified organism; D62 Acute posthemorrhagic anemia; J98.11 Atelectasis; J44.1 Chronic obstructive pulmonary disease with (acute) exacerbation; J44.0 Chronic obstructive pulmonary disease with (acute) lower respiratory infection; S37.39XA Other injury of urethra, initial encounter; N13.8 Other obstructive and reflux uropathy; D50.9 Iron deficiency anemia, unspecified; N13.9 Obstructive and reflux uropathy, unspecified; K21.0 Gastro-esophageal reflux disease with esophagitis; K22.70 Barrett's esophagus without dysplasia; K44.9 Diaphragmatic hernia without obstruction or gangrene; K29.70 Gastritis, unspecified, without bleeding; K29.80 Duodenitis without bleeding; K63.5 Polyp of colon; K62.1 Rectal polyp; K64.8 Other hemorrhoids; R31.9 Hematuria, unspecified; Y84.6 Urinary catheterization as the cause of abnormal reaction of the patient, or of later complication, without mention of misadventure at the time of the procedure; N40.1 Benign prostatic hyperplasia with lower urinary tract symptoms; Z86.11 Personal history of tuberculosis

== ENCOUNTER → 2019-02-23 18:21 | Outpatient (CLI) | payer MEDICARE, BC ==
[2019-01-22 10:44] VITALS: BMI 26.9
[~2019-02-23 18:21] MED LIST: BAYER CHEWABLE81 MG PO; FLOMAX0.4 MG PO; LEVAQUIN750 MG PO; NEXIUM20 MG PO; PROSCAR5 MG PO; PROTONIX40 MG PO; VITAMIN B-12250 MC3 PO
== END | disposition home or self-care (01) ==
LOC: D.LABREF 18:21
PROVIDERS: ATTEND Urology
DX: R31.0 Gross hematuria (principal)

== ENCOUNTER 2019-03-08 07:55 | Day surgery (SDC) | payer MEDICARE, BC ==
[2019-03-07 10:08] LABS: BASOPHILS 0.3 % (0-2); EOSINOPHILS 2.2 % (0-7); HEMATOCRIT 41.9 % (42.0-54.0); HEMOGLOBIN 13.5 g/dL (13.5-17.5); IMMATURE GRANULOCYTES 0.1 % (0-5); LYMPHOCYTES 14.5 % (15-50); MCH 27.2 pg (26.0-34.0); MCHC 32.2 g/dL (31.0-37.0); MCV 84.5 fL (80.0-100.0); MEAN PLATELET VOLUME 9.6 fL (7.4-10.4); MONOCYTES 10.3 % (2-11); NEUTROPHILS 72.6 % (40-80); PLATELET COUNT 183 10x3/uL (130-400); RBC 4.96 10x6/uL (4.20-6.10); RDW 25.8 % (11.5-14.5); WBC 6.7 10x3/uL (4.8-10.8)
[2019-03-07 10:10] LABS: APTT 28.3 SECONDS (22.8-39.4); INR 1.05 (0.85-1.17); PROTIME 13.2 SECONDS (11.6-15.0)
[2019-03-08] MEDS ORDERED: AUGMENTIN 875-11 TAB PO (09:48)
[2019-03-08 09:49] VITALS: BP 161/74; BMI 25.4
--- NOTE | 2019-03-08 14:23 | OP ---
PATIENT NAME: MARILYN LAWRENCE MEDICAL RECORD: [id number] :[birth year] LOCATION:D[facility] ADMISSION DATE: SURGEON: ABDIEL LUDWIG MD DATE OF OPERATION: 03/08/2019 SURGEON: Abdiel Ludwig MD ANESTHESIA: TIVA by Luisa Rollins CRNA. 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 PROCEDURE: UroLift times 6 units deployed, but 4 held in position. Jensen catheter insertion. FINDINGS: Obstructive lateral lobes of the prostate with a small median lobe. Heavily trabeculated bladder with cellules and diverticula. No bladder tumors. ESTIMATED BLOOD LOSS: Minimal. CLINICAL HISTORY: This is a 78-year-old male, who went into urinary retention some time ago. Attempts at catheterization at another hospital were unsuccessful and it resulted in bulbar urethral perforation. When I saw him in the consultation, I had to bring him to the operating room to get a guidewire cystoscopically into the bladder and then inserted of [place] tip Jensen catheter over the guidewire. At that time, I noticed that he had bilateral lateral lobe obstruction with a minimal amount of median lobe. He comes now to have the UroLift procedure done. He is not allergic to any medications. He was given Ancef professional organizer to the OR. DESCRIPTION OF PROCEDURE: The patient's old Jensen catheter was removed. He was given IV sedation in supine position and then he was put into the lithotomy position and prepped and draped. The UroLift scope was introduced. The bulbar urethral perforation was completely healed. The obstructive prostate was seen. We put 2 units at the level of the verumontanum, one on each side, at the anterolateral sulcus. These went in without any difficulty. We then attempted to put 2 units at the anterolateral sulcus of the prostate near the bladder neck. These were placed about 1.5 cm distal to the bladder neck. On each side, the first unit that we attempted struck bone and the unit pulled through. These had to be abandoned. Finally, on each side, we had a good deployment of each unit. Thus, 6 units were fired, but only 4 held in position. At the end of the procedure, there was good anterior urethral channel. The bladder was left partly full and then I removed the scope. A 16-Armenian Jensen catheter was then inserted into the bladder. The balloon was inflated with 10 cc of sterile water. I will see the patient in followup next week for a voiding trial. TRANSINT:[id number] Voice Confirmation ID: [id number] DOCUMENT ID: [id number] OPERATIVE REPORT [id number] MARILYN LAWRENCE ROBERT S MD at 1423 CC: [id number] DICTATION DATE: 03/08/19 1347 FLITCH HANGER: 03/08/19 1422 [place] [id number] [place] [id number]
== END 2019-03-08 14:51 | disposition home or self-care (01) ==
LOC: D.OPS 07:55 → D.PAN 11:15 → D.OPS 11:15 → D.PAN 12:00 → D.OPS 13:00 → D.PAN 13:00 → D.OPS 14:51
PROVIDERS: Anesthesiology; ATTEND Urology
DX: N40.1 Benign prostatic hyperplasia with lower urinary tract symptoms (principal); N13.8 Other obstructive and reflux uropathy; R33.8 Other retention of urine; N32.89 Other specified disorders of bladder; N32.3 Diverticulum of bladder; Z01.812 Encounter for preprocedural laboratory examination

== ENCOUNTER → 2019-03-18 18:22 | Outpatient (CLI) | payer MEDICARE, BC ==
[2019-03-08 09:49] VITALS: BMI 25.4
[~2019-03-18 18:22] MED LIST changes: +AUGMENTIN 875-11 TAB PO
== END | disposition home or self-care (01) ==
LOC: D.LABREF 18:22
PROVIDERS: ATTEND Urology
DX: N30.01 Acute cystitis with hematuria (principal)

== ENCOUNTER → 2019-04-01 16:25 | Outpatient (CLI) | payer MEDICARE, BC ==
[2019-03-08 09:49] VITALS: BMI 25.4
== END | disposition home or self-care (01) ==
LOC: D.LABREF 16:25
PROVIDERS: ATTEND Urology
DX: D72.829 Elevated white blood cell count, unspecified (principal)

== ENCOUNTER → 2019-11-23 20:36 | Outpatient (CLI) | payer MEDICARE, BC | END | disposition home or self-care (01) | LOC: D.LABREF 20:36 | PROVIDERS: ATTEND Urology | DX: D72.0 Genetic anomalies of leukocytes (principal); N39.0 Urinary tract infection, site not specified ==

== ENCOUNTER 2020-05-09 21:46 | Emergency (ER) | payer MEDICARE, BC ==
[~2020-05-09] VITALS: Ht 166.4 cm; Wt 73.5 kg
[2020-05-09 21:53] VITALS: Ht 166.4 cm; Wt 73.5 kg
[2020-05-09 23:02] LABS: BASOPHILS 0.1 % (0-2); EOSINOPHILS 2.6 % (0-7); HEMATOCRIT 42.4 % (42.0-54.0); IMMATURE GRANULOCYTES 0.3 % (0-5); MCH 32.1 pg (26.0-34.0); MCV 97.2 fL (80.0-100.0); MONOCYTES 12.1 % (2-11); NEUTROPHILS 68.9 % (40-80); PLATELET COUNT 172 10x3/uL (130-400); RBC 4.36 10x6/uL (4.20-6.10); RDW 13.7 % (11.5-14.5)
[2020-05-09 23:11] LABS: CALC OSMOLALITY 281 mosm/kg (275-300); CALCIUM 8.2 mg/dL (8.5-10.1); CHLORIDE - SERUM 106 mmol/L (98-107); CREATININE - SERUM 0.9 mg/dL (0.6-1.3); GLUCOSE 137 mg/dL (74-106); POTASSIUM - SERUM 3.4 mmol/L (3.5-5.1); SODIUM 139 mmol/L (136-145); UREA NITROGEN 17 mg/dL (7-18); eGFR NON AFRICAN AMERICAN 86 mL/min (90-120)
[2020-05-09 23:17] LABS: ALBUMIN 3.2 g/dL (3.4-5.0); ALKALINE PHOSPHATASE 95 U/L (30-120); ALT (SGPT) 27 U/L (10-68); BILIRUBIN - TOTAL 0.21 mg/dL (0.2-1.3); PROTEIN - SERUM 6.8 g/dL (6.4-8.2)
[2020-05-09 23:19] LABS: BILIRUBIN NEGATIVE (NEGATIVE); GLUCOSE NEGATIVE (NEGATIVE); KETONE NEGATIVE (NEGATIVE); NITRITE NEGATIVE (NEGATIVE); UROBILINOGEN NORMAL (NORMAL)
[2020-05-09 23:21] LABS: BACTERIA NONE SEEN /hpf (NEGATIVE); EPITHELIAL CELLS 0-5 /hpf (0-5); RED CELLS - URINE >50 /hpf (0-5); WHITE CELLS - URINE 0-5 /hpf (NEGATIVE)
[2020-05-10 01:25] VITALS: BP 132/78
== END 2020-05-09 23:58 | disposition home or self-care (01) ==
LOC: D.ER 21:46
PROVIDERS: Emergency Medicine
DX: R31.9 Hematuria, unspecified (principal); E87.6 Hypokalemia; R39.15 Urgency of urination; J44.9 Chronic obstructive pulmonary disease, unspecified